=== PATIENT | female | born 1945 | race Caucasian/White ===

== ENCOUNTER 2016-10-09 09:11 | Outpatient (CLI) | payer MEDICARE, OTHER ==
[2016-10-09 10:17] LABS: eGFR (African) > 60; eGFR (Non-African) > 60
== END 2016-10-09 09:12 ==
LOC: LAB 09:11
PROVIDERS: ATTEND Family Medicine
DX: I10 Essential (primary) hypertension (principal); E03.9 Hypothyroidism, unspecified; E78.00 Pure hypercholesterolemia, unspecified
CPT/HCPCS: 36415; 80053; 80061; 84443

== ENCOUNTER 2017-06-24 11:09 | Day surgery (SDC) | payer MEDICARE, OTHER ==
[~2017-06-24 11:09] MED LIST: LACTATED RINGERS 1,000 ML IV.SOLN IV ONE; PROPOFOL 200 MG/20 ML VIAL IV ONE; SALINE FLUSH 10 ML DISP.SYRIN IVF ONE
--- NOTE | 2017-06-25 11:41 | GI Report ---
REFERRING PHYSICIAN: Dr. Enrico Black PATTERN SETTER: Jorge De Oliveira MD PROCEDURE MEDICATION: Propofol as per anesthesia. 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 It has been 10 years. She denies changes in bowel habits. No family history of colorectal cancer or other cancers in the family. PROCEDURE PERFORMED: Colonoscopy. PROCEDURE: An Olympus video colonoscope was advanced to the rectum and slowly advanced all the way to the cecum. The appendiceal orifice and terminal ileum were normal. On slow withdrawal, the cecum, ascending colon, and transverse colon with no obvious intraluminal lesions noted. The descending colon and sigmoid, again, with some redundancy. No obvious intraluminal lesions were noted. Retroflexion of the rectum was normal. Patient tolerated the procedure well. FINDINGS: Normal colon mucosa to the cecum. RECOMMENDATIONS: 1. Continue high-fiber diet. 2. Consider re-looking at her colon in 10 years unless clinically indicated. cc: Dr. Enrico Black [facility]
== END 2017-06-24 11:10 ==
LOC: OPSURG 11:09
PROVIDERS: ATTEND Internal Medicine Gastroenterology
DX: Z12.11 Encounter for screening for malignant neoplasm of colon (principal)
CPT/HCPCS: J2704; J7120; G0121; S1016

== ENCOUNTER 2017-11-13 09:21 | Outpatient (CLI) | payer MEDICARE, OTHER | END 2017-11-13 09:22 | LOC: RAD 09:21 | PROVIDERS: ATTEND Family Medicine | DX: M85.89 Other specified disorders of bone density and structure, multiple sites (principal) | CPT/HCPCS: 77080 ==